=== PATIENT | female | born 1940 | race Caucasian/White ===

== ENCOUNTER 2019-01-01 10:18 | Outpatient (CLI) | payer MEDICARE ==
[2019-01-01 12:11] LABS: Hemoglobin A1c 5.6 % (4.0-6.0)
--- NOTE | 2019-01-01 15:56 | EKG ---
Test Reason : Blood Pressure : / mmHG Vent. Rate : 058 BPM Atrial Rate : 058 BPM P-R Int : 166 ms QRS Dur : 082 ms QT Int : 428 ms P-R-T Axes : 080 056 082 degrees QTc Int : 420 ms Sinus bradycardia Septal infarct , age undetermined cannot be excluded Abnormal ECG Confirmed by BOBO HUMPHREYS ([id number]) on 01/01/2019 3:55:37 PM Referred By: VANDANA Confirmed By:BOBO HUMPHREYS
== END 2019-01-01 10:19 | disposition home or self-care (01) ==
LOC: LABBT 10:18
PROVIDERS: ATTEND Surgery
DX: Z01.818 Encounter for other preprocedural examination (principal); K38.8 Other specified diseases of appendix
CPT/HCPCS: 83036; 93005; 93010

== ENCOUNTER 2019-01-02 06:44 | Day surgery (SDC) | payer MEDICARE ==
[2019-01-01 10:44] VITALS: BMI 18.1
[2019-01-02] MEDS ORDERED: Midazolam HCl 2 mg/2 ml Vial ONE (07:33)
[2019-01-02] MEDS ORDERED: Fentanyl 100 MCG/2 ML VIAL ONE ×2 (07:33→09:29)
[2019-01-02] MEDS ORDERED: cefOXitin 2 GM VIAL ONE (07:44)
[2019-01-02] MEDS ORDERED: Sodium Chloride 0.9% 100 ML ONE (07:44)
[2019-01-02 08:18] LABS: Anion Gap 10 mmol/L (10-20); BUN (Urea Nitrogen) 9 mg/dL (9.8-20.1); Calc. Creatinine Clearance 49 mL/min (70-130); Calcium 8.9 mg/dL (7.8-10.44); Carbon Dioxide 27 mmol/L (23-31); Chloride 109 mmol/L (98-107); Estimated GFR-MDRD 75; Glucose 79 mg/dL (83-110); Potassium 3.4 mmol/L (3.5-5.1); Sodium 143 mmol/L (136-145)
[2019-01-02] MEDS ORDERED: Bupivacaine/Epinephrine 0.25% 30 ML VIAL ONE (09:26)
[2019-01-02] MEDS ORDERED: HYDROcodone/Acetaminophen 5/325 mg Tablet ONE (11:57)
--- NOTE | 2019-01-02 16:24 | OP ---
DATE OF PROCEDURE: 01/02/2019 PREOPERATIVE DIAGNOSIS: Appendiceal mass. POSTOPERATIVE DIAGNOSIS: Appendiceal mass. PROCEDURE PERFORMED: Laparoscopic appendectomy. ANESTHESIA: General. ESTIMATED BLOOD LOSS: Minimal. COMPLICATIONS: None. SPECIMEN: Appendix. FINDINGS: Tail of appendiceal mass. BRIEF HISTORY: The patient is a 78-year-old female, who presents with a history of chronic right lower quadrant pain. CT scan revealed evidence of cystic mass either of the right adnexa or of the appendix. She underwent preop colonoscopy that was within normal limits. She presents for laparoscopy and removal of this cystic mass. DESCRIPTION OF PROCEDURE: The patient was taken to the operating room, laid supine on the operating table. After general anesthetic was obtained, the Mccann was placed and the abdomen was prepped and draped in a sterile fashion. A straight incision was made below the umbilicus, cautery dissected down to and score the fascia. Abdominal cavity was entered bluntly using a Rin clamp. Holding stitch of PDS was placed on each side of the fascia. Mary trocar was placed. High-flow pneumoperitoneum was obtained. A suprapubic femoral port and left lower quadrant 5 mm port were placed under direct visualization. The mass was found to be at the base the appendix. The appendix was mobilized along the white line of Toldt using cautery. A small window was made at the base appendix and mesoappendix. Laparoscopic stapler was fired across the base of the appendix. A vascular reload was fired across the mesoappendix. The appendix was placed in an EndoCatch bag and brought out through the Mary. There was no bleeding on the staple lines. The right adnexa shows no obvious abnormality. All port sites were infiltrated using local anesthetic. All ports were removed under camera visualization. Pneumoperitoneum was let down. PDS was used to close the fascial defect below the umbilicus. All incisions were irrigated and closed using 4-0 Monocryl and Dermabond. The patient was sent to Recovery in stable condition. All instrument counts, needle counts, and lap counts were correct. Job ID: [id number]
== END 2019-01-02 12:10 | disposition home or self-care (01) ==
LOC: SDC 06:44
PROVIDERS: ATTEND Surgery
PROC: 0DTJ4ZZ Resection of Appendix, Percutaneous Endoscopic Approach (ICD-10-PCS; principal; 2019-01-02)
DX: D49.0 Neoplasm of unspecified behavior of digestive system (principal); E11.9 Type 2 diabetes mellitus without complications; E04.2 Nontoxic multinodular goiter; F41.9 Anxiety disorder, unspecified; G89.29 Other chronic pain; R10.31 Right lower quadrant pain; Z79.4 Long term (current) use of insulin; Z79.82 Long term (current) use of aspirin; Z79.899 Other long term (current) drug therapy; Z88.1 Allergy status to other antibiotic agents
CPT/HCPCS: 36415; 36416; 80048; 88304; J0131; J0694; J2250; J3010; J3490